=== PATIENT | male | born 1990 | race Caucasian/White ===

== ENCOUNTER 2021-01-06 16:58 | Emergency (ER) | payer OTHER ==
[~2021-01-06] VITALS: Ht 185.4 cm; Wt 108.9 kg
[2021-01-06 17:02] VITALS: BP 147/87
[2021-01-06] MEDS ORDERED: BUSPIRONE HCL10 MG PO (17:05)
[2021-01-06] MEDS ORDERED: FLEXERIL PO (17:06)
== END 2021-01-06 18:39 | disposition home or self-care (01) ==
LOC: ER 16:58
DX: U07.1 COVID-19 (principal); R50.9 Fever, unspecified; F90.9 Attention-deficit hyperactivity disorder, unspecified type; F41.9 Anxiety disorder, unspecified; Z79.899 Other long term (current) drug therapy; Z91.02 Food additives allergy status